=== PATIENT | female | born 1955 | race Caucasian/White ===

== ENCOUNTER → 2017-02-16 | Outpatient (CLI) | payer OTHER ==
[~2017-02-16] MED LIST: HYOSCYAMINE0.125 M4 PO; LISINOPRIL/HCTZ1 TA3 PO; NEXIUM40 MG PO; PRAVACHOL 40MG40 MG PO
[2017-02-16 10:23] LABS: BUN 29 mg/dL (7-18); GFR (ESTIMATED) 42 ML/MIN (59-)
== END ==
LOC: LAB 07:59
PROVIDERS: Nurse Practitioner Family
DX: E11.9 Type 2 diabetes mellitus without complications (principal); E78.2 Mixed hyperlipidemia; I10 Essential (primary) hypertension

== ENCOUNTER → 2017-03-21 | Outpatient (CLI) | payer OTHER ==
[2017-03-21 11:10] LABS: URINE BILIRUBIN - DIPSTICK NEGATIVE (NEG); URINE BLOOD NEGATIVE (NEG)
[2017-03-21 17:53] LABS: BUN 10 mg/dL (7-18)
[2017-03-21 18:22] LABS: GFR (ESTIMATED) 64 ML/MIN (59-)
[2017-03-22 10:38] LABS: Creatinine, Urine 162.4 mg/dL (Not Estab.); Microalbumin, Urine 53.5 ug/mL (Not Estab.)
== END ==
LOC: LAB 10:39
PROVIDERS: Family Medicine
DX: I10 Essential (primary) hypertension (principal); N18.3 Chronic kidney disease, stage 3 (moderate)